=== PATIENT | male | born 1975 | race Caucasian/White ===

== ENCOUNTER → 2018-08-20 | Emergency (ER) | payer OTHER ==
[2018-08-20] MEDS: ACETAMINOPHEN 325 MG TAB PO (11:43)
[2018-08-20] MEDS: LIDOCAINE 1% (MDV) 20 ML INJ SC (11:43)
== END | disposition home or self-care (01) ==
LOC: FTE 09:25
DX: L60.0 Ingrowing nail (principal); Z87.891 Personal history of nicotine dependence
CPT/HCPCS: 11750; 99283-25